=== PATIENT | male | born 1940 | race African-American/Black ===

== ENCOUNTER 2019-08-27 21:11 | Inpatient (IN) | payer OTHER ==
[~2019-08-27] VITALS: Ht 167.6 cm; Wt 72.7 kg
[2019-08-27] MEDS ORDERED: ONDANSETRON HCL 4MG/2ML INJ IV STA (22:21)
[2019-08-27 23:26] LABS: BASOPHILS % 0.6 % (0.0-2.0); EOSINOPHILS % 3.6 % (0.0-5.0); HEMATOCRIT. 37.7 % (42.0-52.0); HEMOGLOBIN. 12.7 g/dL (14.0-18.0); LYMPHOCYTES % 22.2 % (20.0-50.0); MEAN CORPUSCULAR HEMOGLOBIN 30.3 pg (28.0-32.0); MEAN CORPUSCULAR VOLUME 89.8 fL (80.0-94.0); MONOCYTES % 5.5 % (2.0-8.0); NEUTROPHILS % 68.1 % (40.0-76.0); PLATELET 180 x1000/uL (130-400); RED CELL DISTRIBUTION WIDTH 13.6 % (11.6-14.6)
[2019-08-27 23:27] LABS: CHLORIDE 110 mEq/L (98-107)
[2019-08-27] MEDS ORDERED: ACETAMINOPHEN 325MG TABLET PO ONE (23:30)
[2019-08-27] MEDS ORDERED: KETOROLAC 15MG/ML VIAL IV ONE (23:30)
[2019-08-27 23:34] LABS: ETHANOL BLOOD < 10 mg/dL
[2019-08-27 23:48] LABS: CLARITY URINE CLEAR (CLEAR); COLOR URINE YELLOW (YELLOW); KETONES URINE NEGATIVE (NEGATIVE); LEUKOCYTE ESTERASE URINE NEGATIVE (NEGATIVE); NITRITE URINE NEGATIVE (NEGATIVE); OCCULT BLOOD URINE NEGATIVE (NEGATIVE); PH URINE 6.5 (4.5-8.0); PROTEIN URINE TRACE (NEGATIVE); SPECIFIC GRAVITY URINE 1.015 (1.005-1.030); UROBILINOGEN URINE 0.2 E.U./dL (0.2-1.0)
[2019-08-28 00:05] LABS: *BARBITURATES SCREEN URINE NEGATIVE (NEGATIVE)
[2019-08-28 00:06] LABS: *BENZODIAZEPINES SCREEN URINE NEGATIVE (NEGATIVE); *COCAINE SCREEN URINE NEGATIVE (NEGATIVE); CANNABINOID URINE SCREEN NEGATIVE (NEGATIVE); METHADONE URINE SCREEN NEGATIVE (NEGATIVE); PHENCYCLIDINE URINE SCREEN NEGATIVE (NEGATIVE)
[2019-08-28 00:18] LABS: *AMPHETAMINES SCREEN URINE NEGATIVE (NEGATIVE); OPIATES URINE SCREEN NEGATIVE (NEGATIVE)
[2019-08-28 01:49] LABS: INR 1.1; PARTIAL THROMBOPLASTIN TIME 23.1 sec (23.4-31.0); PROTHROMBIN TIME 11.5 sec (9.6-11.0)
[2019-08-28] MEDS ORDERED: IOHEXOL-300 100 ML BOTTLE ONE (03:28)
[2019-08-28] MEDS ORDERED: DEXTROSE 50% WATER 50ML SYRINGE IV PRN (06:15)
[2019-08-28] MEDS: BLOOD SUGAR DIAGNOSTIC STRIP TEST SCH ×4 (09:27→21:00)
[2019-08-28] MEDS: INSULIN LISPRO 100 UNITS/ML SUBCUT SCH ×4 (09:40→23:12)
[2019-08-28] MEDS: HYDRALAZINE HCL 50MG TABLET PO SCH ×2 (12:00→21:00)
[2019-08-28 13:34] LABS: BASOPHILS % 0.2 % (0.0-2.0); EOSINOPHILS % 0.1 % (0.0-5.0); HEMATOCRIT. 44.5 % (42.0-52.0); HEMOGLOBIN. 15.2 g/dL (14.0-18.0); LYMPHOCYTES % 9.1 % (20.0-50.0); MEAN CORPUSCULAR HEMOGLOBIN 30.7 pg (28.0-32.0); MEAN CORPUSCULAR VOLUME 89.7 fL (80.0-94.0); MEAN PLATELET VOLUME 8.7 fl (7.4-10.4); MONOCYTES % 5.3 % (2.0-8.0); NEUTROPHILS % 85.3 % (40.0-76.0); PLATELET 189 x1000/uL (130-400); RED BLOOD CELL COUNT 4.96 mill/uL (4.7-6.1); RED CELL DISTRIBUTION WIDTH 14.2 % (11.6-14.6)
[2019-08-28 14:44] LABS: CHLORIDE 101 mEq/L (98-107)
[2019-08-28 14:55] LABS: T4 FREE 0.96 ng/dL (0.76-1.46)
[2019-08-28 14:57] LABS: CREATINE KINASE 342 IU/L (39-308); HDL CHOLESTEROL 44 mg/dL (40-59); LDL CHOLESTEROL 66 mg/dL (5-100)
[2019-08-28] MEDS ORDERED: NICARDIPINE 40MG/200ML PREMIX 200 ML IV PRN (18:12)
[2019-08-28] MEDS ORDERED: ONDANSETRON HCL 4MG/2ML INJ IV ONE (21:30)
[2019-08-29] VITALS (78 sets, daily range): BP systolic 89–140; BP diastolic 29–82
[2019-08-29] MEDS ORDERED: IOHEXOL-350 100 ML BOTTLE ONE
[2019-08-29] MEDS ORDERED: NICARDIPINE 50 MG in SODIUM CHLORIDE 0.9% 230 ML IV PRN ×4 (01:00)
[2019-08-29] MEDS: NICARDIPINE 100 MG in SODIUM CHLORIDE 0.9% 60 ML IV PRN ×2 (01:02→13:19)
[2019-08-29] MEDS: BLOOD SUGAR DIAGNOSTIC STRIP TEST SCH ×3 (08:00→17:30)
[2019-08-29] MEDS: INSULIN LISPRO 100 UNITS/ML SUBCUT SCH ×3 (08:02→17:47)
[2019-08-29 08:30] LABS: CREATINE KINASE 419 IU/L (39-308); CREATINE KINASE MB FRACTION 18.3 ng/mL (0.5-3.6)
[2019-08-29] MEDS: HYDRALAZINE HCL 50MG TABLET PO SCH (08:42)
[2019-08-29] MEDS ORDERED: CLONIDINE 0.1MG TABLET PO PRN (16:45)
[2019-08-29] MEDS ORDERED: AMLODIPINE 10MG TABLET PO SCH (16:45)
== END 2019-08-29 21:20 | disposition short-term general hospital (02) | DRG 66 ==
LOC: ER 21:11 → 5EST 08-28 01:53 → EDBEDREQSVC 08-28 12:47 → ENRESERV 08-28 21:58
PROVIDERS: ADMIT Family Medicine; ATTEND Family Medicine
DX: I62.00 Nontraumatic subdural hemorrhage, unspecified (principal); K80.20 Calculus of gallbladder without cholecystitis without obstruction; I10 Essential (primary) hypertension; E11.9 Type 2 diabetes mellitus without complications; E78.00 Pure hypercholesterolemia, unspecified; E78.5 Hyperlipidemia, unspecified; K57.30 Diverticulosis of large intestine without perforation or abscess without bleeding; M41.9 Scoliosis, unspecified; M47.9 Spondylosis, unspecified; N28.1 Cyst of kidney, acquired; Z96.643 Presence of artificial hip joint, bilateral; Z86.73 Personal history of transient ischemic attack (TIA), and cerebral infarction without residual deficits
CPT/HCPCS: 36415; 70496; 74177; 80053; 80061; 80305; 80320; 81003; 82140; 82550; 82553; 82962; 83036; 83880; 84439; 84443; 84484; 85025; 85379; 93005; 93306; 96374; 96375; 99285; J1815; J1885; J2405; J3490; J7050; Q9967; G0480